=== PATIENT | female | born 1930 | race Caucasian/White ===

== ENCOUNTER 2018-07-11 12:03 | Inpatient (IN) | payer MEDICARE ==
[~2018-07-11] VITALS: Ht 154.9 cm; Wt 59.0 kg
[~2018-07-11 12:03] MED LIST: ASPI-630 PO; BUPIVAC MPF-EPI 0.5%-1:200000 30 ML VIAL. ONE; CHLORHEXIDINE 0.12% 15 ML MOUTHWASH. SWSP ONE; GELATIN SPONGE SIZE 100. ONE; HYDR100T24 PO; HYDROmorphone 2 MG/ML VIAL IV PRN; IV RINGERS,LACTATED 1000ML 1,000 ML IV SCH; LEVO100T5 PO; LIDOCAINE 1% PF 2 ML VIAL. ID PRN; LIDOCAINE 2% TOPICAL JELLY 30GM TUBE. TP ONE; LISI-130 PO; LISI10TA2 PO; MORPHINE SULFATE 2 MG/ML VIAL. IV PRN; NIFE60TA16 PO; OLME20TA17 PO; ONDANSETRON PF 4 MG/2 ML VIAL. IV PRN; PROCHLORPERAZINE 10 MG/2 ML VIAL. IV PRN; RANI150T21 PO; fentaNYL PF VIAL 100 MCG/2 ML VIAL IV PRN
[2018-07-11] MEDS ORDERED: PHENYLEPHRINE in 0.9% NACL PF 1 MG/10 ML SYRINGE. IV ONE (14:51)
[2018-07-11] MEDS ORDERED: ONDANSETRON PF 4 MG/2 ML VIAL. ONE (14:51)
[2018-07-11] MEDS ORDERED: ROCURONIUM 50 MG/5 ML VIAL. ONE (14:51)
[2018-07-11] MEDS ORDERED: DEXAMETHASONE SOD PHOS 20 MG/5 ML VIAL. ONE (14:51)
[2018-07-11] MEDS ORDERED: PROPOFOL 20 ML IV ONE (14:51)
[2018-07-11] MEDS ORDERED: fentaNYL PF VIAL 100 MCG/2 ML VIAL ONE (14:53)
[2018-07-11] MEDS ORDERED: ePHEDrine PF IN SALINE 50 MG/5 ML DISP.SYRIN IV ONE (16:04)
[2018-07-11] MEDS ORDERED: GLYCOPYRROLATE 1 MG/5 ML VIAL. ONE (16:07)
[2018-07-11] MEDS ORDERED: NEOSTIGMINE METHYLSULFATE 5 MG/5 ML SYRINGE. ONE (16:07)
[2018-07-11] MEDS ORDERED: SEVOFLURANE 61 TO 120 MINUTES. IH ONE (16:27)
--- NOTE | 2018-07-11 17:19 | PDOC4 ---
OPERATIVE NOTE Date: Date: Jul 11, 2018 Pre-Op Diagnosis: gross caries, non restorable teeth: 2,3,6,7,8,9,10,11,15,18,22,23,24,25 Maxillary torus Post-Op Diagnosis: gross caries, non restorable teeth: 2,3,6,7,8,9,10,11,15,18,22,23,24,25 Maxillary torus Procedure Performed: Surgical extraction of non restorable teeth 2,3,6,7,8,9,10,11,15,18,22,23,24,25 surgical removal of Maxillary torus Surgeon: marla Anesthesia Type: DD Blood Loss: <50ml Specimans Obtained: teeth disposed of in OR Findings: see dictation carious non restorable teeth Complications: none Operative Note: see dictation surgical extraction of gross caries, non restorable teeth: 2,3,6,7,8,9,10,11,15,18,22,23,24,25 Maxillary torus excision alveoloplasty UR, UL, LL, LR MUSTAPHA SCHERER DMD Jul 11, 2018 17:19
--- NOTE | 2018-07-11 17:23 | DISCH ---
DISCHARGE INSTRUCTIONS Condition on Discharge Condition on Discharge: Stable Activity After Discharge Activity Instructions for Disc: No restrictions, Avoid exertion Bathing Instructions: Shower-keep dressing dry Lifting Instructions after Dis: No heavy lifting (for 3 days) Driving Instructions after Dis: Do not drive today Weight Bearing Status after Di: No restrictions Diet after Discharge Diet after Discharge: Full Liquid (advance to soft mechanical diet as tolerated ) Diet Texture: Mechanically Altered (begin with full liquid diet, advance to soft mechanical diet) Wound Incision Care Wound/Incision Care: Ice to area for comfort, Keep wound elevated Contacting the DRRobin after DC Call your doctor for: If your condition worsens Follow-Up Follow up with: Dr. Scherer [phone] Treatment/Equipment after DC Adaptive Equipment Issued: None Comment: bite on guaze for 60 minutes PRN Bleeding MUSTAPHA SCHERER DMD Jul 11, 2018 17:23
--- NOTE | 2018-07-11 18:38 | OP ---
DATE OF SURGERY: 07/11/2018 ATTENDING PHYSICIAN: Alex Scherer DMD. 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 PREOPERATIVE DIAGNOSES: Coronary artery disease, hypertension, gross caries, nonrestorable dentition. POSTOPERATIVE DIAGNOSES: Coronary artery disease, hypertension, gross caries, nonrestorable dentition. PROCEDURES PERFORMED: Extraction of all remaining teeth numbers 2, 3, 6, 7, 8, 9, 10, 11, 15, 18, 22, 23, 24, 25; alveoloplasty upper right, upper left, lower right, lower left, and maxillary torus removal. BRIEF HISTORY: The patient is an 88-year-old female with multiple comorbidities who presented to our clinic for full mouth extraction in preparation for denture placement. Her teeth are so grossly mobile indicated that the plan is to extract her teeth and allow healing prior to denture fabrication. A full history and physical was performed in our clinic. Case was elected to proceed in the operating room considering her multiple comorbidities to elevate the setting of care. The patient accepted the plan for surgery. Consents were obtained and surgery was scheduled at [facility]. DRAINS PLACED: None. SPECIMEN SENT: None. Teeth were disposed off in the OR. COMPLICATIONS: None noted at the time of surgery. ESTIMATED BLOOD LOSS: Approximately less than 50 mL. PROCEDURE DESCRIPTION: After the history and physical was updated in the preoperative holding area, the patient was transported by the Anesthesia service to the operating suite, placed in the supine position. General anesthesia was induced. The patient was intubated with an oral ANTIONE, which was secured at midline. Surgery began with placement of a moistened throat pack and a surgical timeout and administration of 20 mL of 0.5% Marcaine and 1:200,000 epinephrine. Surgery began on the upper right and upper left quadrants with a #15 blade. A full thickness mucoperiosteal flap was reflected buccally. Teeth were luxated, elevated, and extracted without complication. Tooth #15 was sectioned. No sinus exposures were noted. Alveoloplasty was performed with rongeurs, bone file and curettage. Copious normal sterile saline was irrigated. This procedure was performed also in the lower right and left quadrants with a #15 blade. The full thickness mucoperiosteal flap was reflected buccally and the teeth were luxated, elevated and extracted. #18 was extracted with the assistance of rotary instrumentation with copious normal sterile saline irrigation. Alveoloplasty was performed with rongeurs, bone file, curettage and suctioned. The sites were closed with running 3-0 chromic gut sutures in a running locked fashion. Gelfoam was placed in each extraction site. Attention was directed to the maxillary torus where a 15 blade was employed to make a Y type incision. Full thickness mucoperiosteal flaps were reflected laterally. The maxillary torus was suctioned first with a fissure crosscut bur and rongeur was employed to remove the components of the maxillary torus. The maxillary torus sharp edges were then contoured and smoothed with the assistance of an egg-shaped bur, under copious normal sterile saline irrigation. Sites were all lavaged and suctioned and the maxillary incisions were closed with 3-0 chromic gut suture in a running locked fashion with placement of Gelfoam in the wound. The oral cavity was then lavaged and suctioned. The moistened throat pack was removed. An OG was passed and the stomach was decompressed and the patient was then returned to the care of Anesthesia where she was awakened and extubated and transported to the PACU in a stable condition. ALEX SCHERER DMD DR: Isidro JOB#: [id number] / [id number]
[2018-07-11] MEDS ORDERED: ONDANSETRON PF 4 MG/2 ML VIAL. IV PRN (20:45)
[2018-07-11] MEDS ORDERED: MORPHINE SULFATE 4 MG/ML VIAL. IV PRN (20:45)
[2018-07-11] MEDS ORDERED: MORPHINE SULFATE 2 MG/ML VIAL. IV PRN (20:45)
[2018-07-11 23:00] VITALS: BP 172/96
[2018-07-11] MEDS ORDERED: ENALAPRILAT 1.25 MG/ML VIAL. IVP ONE (23:00)
[2018-07-11] MEDS: PANTOPRAZOLE IV PUSH 40 MG VIAL. IVP SCH (23:05)
[2018-07-12] MEDS ORDERED: ACETAMINOPHEN 325 MG TABLET. PO PRN (01:00)
[2018-07-12 03:00] VITALS: BP 156/51
[2018-07-12] MEDS ORDERED: MORPHINE SULFATE 4 MG/ML VIAL. IV PRN (04:15)
[2018-07-12 04:51] LABS: BASO % 0 % (0-3); EOS % 0 % (0-3); HEMATOCRIT 33.2 % (36.0-47.0); HEMOGLOBIN 11.5 g/dL (12.0-15.5); LYMPH # 0.3 x10^3/uL (1.0-4.8); LYMPH % 4 % (24-48); MEAN CORPUSCULAR HEMOGLOBIN 31 pg (25-35); MEAN CORPUSCULAR HGB CONC 35 g/dL (31-37); MEAN CORPUSCULAR VOLUME 88 fL (79-100); MONO # 0.7 x10^3/uL (0.0-1.1); MONO % 8 % (0-9); NEUT # 8.2 x10^3uL (1.8-7.7); NEUT % 88 % (31-73); PLATELET COUNT 196 x10^3/uL (140-400); RED BLOOD COUNT 3.78 x10^6/uL (3.50-5.40); RED CELL DISTRIBUTION WIDTH 13.7 % (11.5-14.5); WHITE BLOOD COUNT 9.3 x10^3/uL (4.0-11.0)
[2018-07-12 05:13] LABS: CALCIUM 8.6 mg/dL (8.5-10.1); GFR 52.3
[2018-07-12 06:20] LABS: % BANDS 3 % (0-9); % LYMPHS 3 % (24-48); % MONOS 9 % (0-10); % SEGS 85 % (35-66); PLT ESTIMATE ADEQUATE (ADEQUATE)
[2018-07-12] MEDS ORDERED: LOSARTAN POTASSIUM 50 MG TABLET. PO PRN (06:30)
[2018-07-12 07:00] VITALS: BP 152/61
[2018-07-12] MEDS ORDERED: LEVOTHYROXINE 100 MCG TABLET PO SCH (07:00)
[2018-07-12] MEDS: ASPIRIN CHEWABLE 81 MG TABLET. PO SCH ×2 (09:00→10:19)
[2018-07-12] MEDS ORDERED: FAMOTIDINE 20 MG TABLET. PO SCH (09:00)
[2018-07-12] MEDS ORDERED: LISINOPRIL 20 MG TABLET PO SCH (09:00)
[2018-07-12] MEDS: PANTOPRAZOLE IV PUSH 40 MG VIAL. IVP SCH (10:19)
[2018-07-12 11:04] VITALS: BP 154/56
--- NOTE | 2018-07-12 12:25 | SSS ---
ADMIT DATE: 07/12/2018 CHIEF COMPLAINT: Postop pain after having her teeth pulled. HISTORY OF PRESENT ILLNESS: The patient is a pleasant elderly female who had all of her teeth pulled yesterday. Apparently the pain was so bad, they had to admit her overnight for observation. This morning, she looks great. She wants to go home. PAST MEDICAL HISTORY: Hypertension, GERD, hypothyroidism. ALLERGIES: BETA BLOCKERS, AMLODIPINE, ATORVASTATIN, CLONIDINE, IODINE. FAMILY HISTORY: Coronary artery disease. SOCIAL HISTORY: She does not drink, smoke or take drugs. She lives at home by herself. MEDICATIONS: Reviewed. She is on hydralazine and Synthroid, among others. Please refer to the MRAD. REVIEW OF SYSTEMS: GENERAL: No history of weight change, weakness or fevers. SKIN: No bruising, hair changes or rashes. EYES: No blurred, double or loss of vision. NOSE AND THROAT: No history of nosebleeds, hoarseness or sore throat. MOUTH: She complains of mouth pain, but is better. HEART: No history of palpitations, chest pain or shortness of breath on exertion. LUNGS: Denies cough, hemoptysis, wheezing or shortness of breath. GASTROINTESTINAL: Denies changes in appetite, nausea, vomiting, diarrhea or constipation. GENITOURINARY: No history of frequency, urgency, hesitancy or nocturia. NEUROLOGIC: Denies history of numbness, tingling, tremor or weakness. PSYCHIATRIC: No history of panic, anxiety or depression. ENDOCRINE: No history of heat or cold intolerance, polyuria or polydipsia. EXTREMITIES: Denies muscle weakness, joint pain, pain on walking or stiffness. PHYSICAL EXAMINATION: VITAL SIGNS: Temperature is afebrile, pulse 75, respirations 16, blood pressure 154/90. GENERAL: She is alert, cooperative. Her son is present requesting discharge. HEART: Normal S1, S2. LUNGS: Clear to auscultation. ABDOMEN: Soft. EXTREMITIES: No edema. SKIN: No rashes. ENDOCRINE: No thyromegaly. LYMPHATICS: No cervical nodes. HEMATOPOIETIC: No bruising. HEENT: The mouth is edentulous, a little bit swollen, but her airway is clear. She has some bruising on her lips. LABORATORY DATA: White count is normal at 9, hemoglobin 11.5, platelets 196. Electrolytes are normal. ASSESSMENT AND PLAN: Postop day #1, multiple teeth extractions. The patient is clinically stable for discharge. DISPOSITION: Home. ACTIVITY: As tolerated. DIET: Low sodium. MEDICATIONS: Please see MRAD. TOTAL TIME: 31 minutes. TIMOTHY BUCHANAN DO DR: QUENTIN/laquita JOB#: [id number] / [id number]
== END 2018-07-12 14:00 | disposition home or self-care (01) | DRG 132 ==
LOC: SURG 12:03 → 4 NORTH 18:40
PROVIDERS: ADMIT Internal Medicine; ATTEND Internal Medicine
PROC: 0NQR0ZZ Repair Maxilla, Open Approach (ICD-10-PCS; 2018-07-11)
PROC: 0NQT0ZZ Repair Right Mandible, Open Approach (ICD-10-PCS; 2018-07-11)
PROC: 09BR0ZZ Excision of Left Maxillary Sinus, Open Approach (ICD-10-PCS; 2018-07-11)
PROC: 09BQ0ZZ Excision of Right Maxillary Sinus, Open Approach (ICD-10-PCS; 2018-07-11)
PROC: 0CDXXZ1 Extraction of Lower Tooth, Multiple, External Approach (ICD-10-PCS; 2018-07-11)
PROC: 0CDWXZ1 Extraction of Upper Tooth, Multiple, External Approach (ICD-10-PCS; 2018-07-11)
PROC: 0NQV0ZZ Repair Left Mandible, Open Approach (ICD-10-PCS; principal; 2018-07-11 13:45)
DX: K02.9 Dental caries, unspecified (principal); M27.0 Developmental disorders of jaws; I10 Essential (primary) hypertension; E03.9 Hypothyroidism, unspecified; K21.9 Gastro-esophageal reflux disease without esophagitis; I25.10 Atherosclerotic heart disease of native coronary artery without angina pectoris; Z88.8 Allergy status to other drugs, medicaments and biological substances; Z91.041 Radiographic dye allergy status; Z82.49 Family history of ischemic heart disease and other diseases of the circulatory system
CPT/HCPCS: 36415; 80048; 85007; 85025; A7015; C9113; J0690; J1100; J2270; J2370; J2405; J2704; J2710; J3010; J3490; J7120